=== PATIENT | female | born 1950 | race Caucasian/White ===

== ENCOUNTER 2016-10-27 05:45 | Inpatient (IN) | payer MEDICARE ==
--- NOTE | 2016-10-25 11:24 | Anesthesia Consultation ---
Anesthesia Consult and Med Hx Date of service: 10/25/16 - Airway Anesthetic Teeth Evaluation: Edentulous ROM Head & Neck: Adequate Mental/Hyoid Distance: Adequate Mallampati Class: Class II Intubation Access Assessment: Probably Good - Pulmonary Exam CTA: Yes - Cardiac Exam Cardiac Exam: RRR - Pre-Operative Health Status ASA Pre-Surgery Classification: ASA2 Proposed Anesthetic Plan: Spinal, MAC - Pre-Anesthesia Comment Pre-Anesthesia Comments: Past surgical history: bilateral total knee replacement , arm ORIF, hysterectomy - Pulmonary Hx Smoking: No Hx Asthma: Yes (NOT RECENT) Hx Sleep Apnea: No (ALICIA PRE SCREEN LOW RISK) - Cardiovascular System Hx Hypertension: No - Central Nervous System Hx Seizures: No CVA: No Hx Back Pain: Yes (CHRONIC) - Gastrointestinal Hx Gastroesophageal Reflux Disease: No - Endocrine Hx Renal Disease: No Hx Liver Disease: No Hx Non-Insulin Dependent Diabetes: No - Hematic Hx Anemia: Yes (Hx of blood transfusion) - Other Systems Hx Cancer: No - Additional Comments Anesthesia Medical History Comments: NAC
[2016-10-25 12:07] LABS: Basophils % (Auto) 0.6 % (0.0-1.8); Eosinophils % (Auto) 1.1 % (0.0-4.3); Hemoglobin 13.2 gm/dl (10.1-14.3); Mean Corpuscular HGB Conc 33 % (30-34); Mean Corpuscular Hemoglobin 28 pg (28-32); Mean Corpuscular Volume 84 fl (79-97); Platelet Count 212 K/mm3 (140-440); Red Blood Count 4.78 M/mm3 (3.65-5.03); Red Cell Distribution Width 12.8 % (13.2-15.2)
[2016-10-25 12:16] LABS: INR 1.03 (0.87-1.13)
[2016-10-25 12:17] LABS: Partial Thromboplastin Time 29.7 Sec. (24.2-36.6)
[2016-10-25 12:20] LABS: Alanine Aminotransferase 20 units/L (7-56); Albumin 3.9 g/dL (3.9-5); Albumin/Globulin Ratio 1.1 %; Alkaline Phosphatase 64 units/L (35-129); Bilirubin,Total 0.2 mg/dL (0.1-1.2); Blood Urea Nitrogen 13 mg/dL (7-17); Calcium 9.8 mg/dL (8.4-10.2); Carbon Dioxide 24 mmol/L (22-30); Chloride 101.9 mmol/L (98-107); Glucose 162 mg/dL (65-100); Potassium 3.7 mmol/L (3.6-5.0); Sodium 138 mmol/L (137-145); Total Protein 7.4 g/dL (6.3-8.2)
[2016-10-25 12:26] LABS: Anion Gap 16 mmol/L
[~2016-10-27 05:45] MED LIST: LACTATED RINGERS 1,000 ML IV SCH; PEPCID PO NR; TRANEXAMIC ACID IV ONE; VANCOMYCIN/NS 1 GM/250 ML 250 ML IV NR
[2016-10-27] MEDS ORDERED: NEURONTIN PO NR (06:00)
[2016-10-27] MEDS ORDERED: SUBLIMAZE IV NR (06:00)
[2016-10-27] MEDS ORDERED: NACL BACTERIOSTATIC INFILTRATI ONE (06:42)
[2016-10-27] MEDS ORDERED: VERSED IV NR (07:00)
[2016-10-27] MEDS ORDERED: XYLOCAINE 1% 20 mL ONE (07:00)
[2016-10-27] MEDS ORDERED: MARCAINE-EPI 0.25%-1:200,000 INFILTRATI ONE (07:01)
[2016-10-27] MEDS ORDERED: DECADRON ONE (07:01)
[2016-10-27] MEDS ORDERED: KETALAR IV ONE (07:10)
[2016-10-27] MEDS ORDERED: SUBLIMAZE ONE (07:10)
[2016-10-27] MEDS ORDERED: DIPRIVAN 10 MG/ML IV ONE ×2 (07:17→07:33)
[2016-10-27] MEDS ORDERED: ePHEDrine SULFATE ONE (07:53)
[2016-10-27] MEDS ORDERED: ZEMURON IV ONE (08:08)
[2016-10-27] MEDS ORDERED: XYLOCAINE MPF 2% ONE (08:09)
[2016-10-27] MEDS ORDERED: BLOXIVERZ ONE (08:17)
[2016-10-27] MEDS ORDERED: ROBINUL ONE (08:17)
[2016-10-27] MEDS ORDERED: NEOSPORIN GU IR ONE (08:18)
[2016-10-27] MEDS ORDERED: ZOFRAN ONE (08:18)
[2016-10-27] MEDS ORDERED: NACL 0.9% IR ONE ×2 (08:19)
[2016-10-27] MEDS ORDERED: NACL 0.9% 1000 ML 1,000 ML ONE (08:42)
[2016-10-27] MEDS ORDERED: TRANEXAMIC ACID IV ONE (08:59)
[2016-10-27] MEDS ORDERED: NARCAN 0.4 MG/1 ML IV PRN (09:22)
[2016-10-27] MEDS ORDERED: SODIUM CHLORIDE FLUSH SYRINGE 10 ML IV PRN (09:22)
[2016-10-27] MEDS ORDERED: MORPHINE IV PRN ×2 (09:22)
[2016-10-27] MEDS ORDERED: TYLENOL PO PRN (09:22)
[2016-10-27] MEDS ORDERED: PHENERGAN PR PRN (09:22)
--- NOTE | 2016-10-27 09:29 | Procedure Note ---
Date of procedure: 10/27/16 Pre-op diagnosis: post traumatic arthritis, heterotopic Bone left hip Post-op diagnosis: same Procedure: Left total hip replacement, Removal HO left hip Anesthesia: BRUNO Surgeon: CLEM TALLEY Gate Watchman: SCOTTY SALINAS Estimated blood loss: other (250) Pathology: list (femoral head) Specimen disposition: to lab Condition: stable Disposition: floor
[2016-10-27] MEDS: DILAUDID IV PRN ×3 (09:35→10:16)
[2016-10-27] MEDS ORDERED: DILAUDID ONE (09:36)
[2016-10-27] MEDS ORDERED: LACTATED RINGERS 1,000 ML ONE (09:40)
[2016-10-27] MEDS ORDERED: ANCEF/NS 1 GM/50 ML 50 ML IV SCH ×2 (10:00→23:30)
[2016-10-27] MEDS ORDERED: DULCOLAX PR PRN (10:00)
[2016-10-27] MEDS: MORPHINE PCA 30MG/30ML IV SCH (10:07)
--- NOTE | 2016-10-27 10:07 | Post Anesthesia Evaluation ---
- Post Anesthesia Evaluation Patient Participated: Yes Airway Patent: Yes Stable Respiratory Function: Yes Nausea/Vomiting: No Temp > 96.8F: Yes Pain Manageable: Yes Adequeate Hydration: Yes Anesthesia Complications: No Block Receding Appropriately: Yes Patient on Ventilator: No
--- NOTE | 2016-10-27 10:43 | Admit Criteria Form ---
Admission Criteria Documentation: AMBULATORY SURGERY EXCEPTION CRITERIA Ambulatory Surgery Exception Criteria ( Place 'X' for any and all applicable criteria): Surgery or procedure performed on ambulatory basis may require inpatient stay for[A] ANY ONE of the following(1)(2)(3)(4)(5)(6)(7)(8)(9): [X] I. A preoperative situation, condition, or finding that warrants inpatient stay as indicated by ANY ONE of the following: [] a) Inpatient care needed because of severity of a disease or condition rather than the surgery (eg, severe cardiac or respiratory disease, severe infection) (15) (16 ) (17) (18) [] b) Emergent procedure (eg, angioplasty for acute ischemia)(19) [X] c) Complex surgical approach or situation as indicated by ANY ONE of the following(3): [X] i) Open approach needed instead of usual endoscopic, transcatheter, or other less invasive procedure [] ii) Difficult approach because of previous operation [] iii) Airway monitoring required after open neck procedures(20)(21) [] iv) Large mass requiring unusually extensive dissection [] v) Additional complicating feature requiring inpatient care (eg, drain management)(22(23): [] d) Major surgery in a pt with high anesthetic risk as indicated by ANY ONE of the following (2)(3)(5)(7)(8): [] i) ASA risk class III or higher (severe systemic disease impairing function) [D] [] ii) Advanced age (eg, older than 85 years)(14)(24) [] iii) Symptomatic heart failure(25) [] iv) Symptomatic asthma or COPD(8)(21) [] v) Morbid obesity with hemodynamic or respiratory problems(20)( 21)(26)(27) [] vi) Obstructive sleep apnea(20)(21) [] vii) Former premature infants who are younger than 60 weeks [] viii) High risk for severe postoperative abnormalities (eg, severe postoperative hypocalcemia after parathyroidectomy for severe hyperparathyroidism)(27)( 28) [] ix) Unstable angina(25) [] e) Drug-related risk requiring inpatient stay as indicated by ANY ONE of the following(5)(10)(14)(32)(33) [] i) Procedure requires discontinuing drugs or other therapy (eg , antiarrhythmic medication, antiseizure medication), which necessitates inpatient observation or treatment.(18)(31) [] ii) Major surgery and high risk drug use as indicated by ANY ONE of the following: [] 1) Active abuse of cocaine or similar drug [] 2) Monoamine oxidase inhibitor use [] 3) Other drug identified as posing risk [] f) Inadequate outpatient care situation as indicated by ANY ONE of the following(5)(10)(14)(32)(33) [] i) Patient lives remote from medical facility and procedure has urgent complication potential, and temporary nearby residence cannot be arranged [] ii) Patient will have postprocedure incapacitation and inadequate assistance at home, or alternative level of care cannot be arranged. [] iii) Patient will have long general anesthesia or procedure side effect resolution time, and competent person to stay with patient on first postoperative night at home or alternative level of care cannot be arranged. []iv) Other inadequate outpatient situation that cannot be handled by other means [] II. A perioperative event, condition, or finding that warrants inpatient stay as indicated by ANY ONE of the following (1)(2)(3): [] a) Inadequate physiologic recovery: cardiovascular, respiratory, or hemodynamic status not normal or near preoperative baseline(18) [] b) Hemodynamic instability [] c) Patient not alert with near normal or baseline mental status [] d) Temperature not normal or as expected and not appropriate for outpatient treatment of condition [] e) Ambulatory or appropriate activity level status not yet achieved post procedure [E](34)(35)(36) [] f) Operative site not appropriate (eg, unexpected or excessive drainage or bleeding) [] g) Postoperative effects not resolved or adequately managed (eg, significant pain or vomiting not appropriate for outpatient or next level of care)(10)(12) [] h) Complicating features requiring inpatient care as indicated by ANY ONE of the following(37): [] i) Severe complications of procedure (eg, bowel injury, airway compromise, vascular injury,severe hemorrhage) [] ii) Extensive (eg, dissection far beyond usual scope of procedure ) or prolonged (eg, 120 minutes beyond usual) surgery needed requiring inpatient postoperative care [] iii) Conversion to an open or complex procedure that requires inpatient care (eg, open vs laparoscopic cholecystectomy, abdominal vs vaginal hysterectomy)(38) [] iv) Comorbid condition or test result identified during or post procedure that requires inpatient care (7) [] v) Malignant hyperthermia(30) [] vi) Other complicating feature requiring inpatient care(22)(23) Inpatient stay may be needed until ALL of the following are present (1)(2)(3)(4) (5)(6)(10)(14)(33)(40): []a) Physiologic recovery: cardiovascular, respiratory, and hemodynamic status normal or near preoperative baseline []b) Hemodynamic stability []c) Patient alert, with near normal or baseline mental status []d) Temperature appropriate: patient afebrile or temperature appropriate for outpt treatment of condition []e) Activity level appropriate: ambulatory or appropriate activity level post procedure []f) Operative site appropriate as indicated by ALL of the following: []i) Site dry or with expected drainage []ii) Any blood noted is as expected for procedure. []g) Postoperative effects resolved or managed as indicated by ALL of the following: []i) Pain management appropriate for outpatient (or next level of) care(10) []ii) Minimal nausea and vomiting: if present, successfully treated with oral medication(12) []iii) Headache, dizziness, or drowsiness (if present) are mild. []h) Voiding status acceptable as indicated by ANY ONE of the following: []i) Voiding spontaneously []ii) No voiding but instructions given for follow-up in 6 to 8 hours []iii) Urinary catheter in place, and instructions given for follow-up []i) Complicating features requiring inpatient care manageable at a lower level of care(37) []j) Comorbid conditions manageable at a lower level of care(37) The original [employer] content created by [employer] has been revised. The portions of the content which have been revised are identified through the use of italic text or in bold, and [facility] [employer] has neither reviewed nor approved the modified material. All other unmodified content is copyright [employer]. Please see references footnoted in the original [employer] edition 2016 Admission Criteria Met: Yes
[2016-10-27] MEDS: D5/0.45NS 1,000 ML IV SCH ×2 (11:41→22:35)
[2016-10-27] MEDS: NORCO 5/325 PO PRN (12:45)
[2016-10-27] MEDS: COLACE PO SCH (22:00)
[2016-10-28] MEDS: OxyCONTIN PO SCH ×3 (06:00→21:20)
--- NOTE | 2016-10-28 08:14 | Progress Note ---
Assessment and Plan alert orientated in NAD Chest clear, soft abdomen Neuro intact wound ok OOB today. plan dc in am c home PT. - Patient Problems (1) H/O total hip arthroplasty Current Visit: Yes Status: Resolved Subjective Date of service: 10/28/16 Objective Vital signs: Vital Signs - 12hr 10/27/16 10/28/16 22:47 01:10 Temperature 97.9 F 98.0 F Pulse Rate [ 58 L 59 L Left] Respiratory 20 20 Rate Blood Pressure 104/55 94/53 [Left Arm] O2 Sat by Pulse 96 98 Oximetry - Labs CBC & BMP: 10/25/16 10:38 10/25/16 10:39
--- NOTE | 2016-10-28 08:17 | Discharge Summary ---
Providers - Providers Date of Admission: 10/27/16 05:45 Attending physician: CLEM TALLEY 10/27/16 00:01 Consult to Case Management [CONS] Routine Services Needed at Discharge: Home Health Services Physical Therapy Consult to Physician [CONS] Routine Consulting Provider: VENKATESH TIM Reason For Exam: for post op medical management s/p total hip 10/27/16 09:24 Physical Therapy Evaluation and Treat [CONS] Routine Comment: avoid flexion, add, int rotation of operative hip Reason For Exam: total hip Mode of Transport?: Wheelchair Weight bearing status?: Full wt bearing Assistive devices?: Yes If so list: Walker 10/28/16 00:01 Physical Therapy Evaluation and Treat [CONS] Routine Comment: Reason For Exam: s/p total hip arthroplasty Mode of Transport?: Wheelchair Weight bearing status?: Partial wt bearing Assistive devices?: Yes If so list: Walker Hale Primary care physician: NEW PRODUCT TRAINER Hospitalization Disposition: STILL A PATIENT - Discharge Diagnoses (1) H/O total hip arthroplasty Status: Resolved Core Measure Documentation - Palliative Care Palliative Care/ Comfort Measures: Not Applicable - Core Measures Any of the following diagnoses?: none - VTE Discharge Requirements Has pt received <5 days of overlap therapy or INR<2.0: No Anticoagulant overlap therapy prescribed at discharge: Yes Exam - Constitutional Vitals: Temp Pulse Resp BP Pulse Ox 98.0 F 59 L 20 94/53 98 10/28/16 01:10 10/28/16 01:10 10/28/16 01:10 10/28/16 01:10 10/28/16 01:10 Plan Activity: advance as tolerated Weight Bearing Status: Weight Bear as Tolerated Diet: regular Wound: keep clean and dry Durable Medical Equipment Needed Upon Discharge: Walker-Rolling
--- NOTE | 2016-10-28 10:34 | Consultation ---
History of Present Illness - Reason for Consult Medical management - History of Present Illness Known pt to me who just moved from [place] to [place] and underwent L hip arthroplasty. Has DM treated by diet and last month A1c 6.9 In general stays in good health. Also has been treated for GERD Past History Past Medical History: diabetes, GERD, other (Osteoporosis) Social history: single Family history: diabetes Medications and Allergies Allergies Allergy/AdvReac Type Severity Reaction Status Date / Time No Known Allergies Allergy Verified 02/23/16 06:00 Home Medications Medication Instructions Recorded Confirmed Last Taken Type Ascorbic Acid [Vitamin C] 1,000 mg PO DAILY 10/20/16 10/20/16 10/26/16 History Aspirin [Adult Low Dose Aspirin EC] 81 mg PO DAILY 10/20/16 10/27/16 1 Week Ago History Centrum Silver Tablet 1 tab PO DAILY 10/20/16 10/20/16 10/26/16 History Cholecalciferol Vit D3 [Vitamin D3] 1,000 unit PO QDAY 10/20/16 10/20/16 History Active Meds: Active Medications Acetaminophen (Tylenol) 650 mg PO Q4H PRN PRN Reason: Pain MILD(1-3)/Fever >100.5/CHAVES Acetaminophen/Hydrocodone Bitart ([place] 5/325) 1 each PO Q6H PRN PRN Reason: Pain, Moderate (4-6) Last Admin: 10/27/16 12:45 Dose: 1 each Bisacodyl (Dulcolax) 10 mg MS QDAY PRN PRN Reason: Constip unreliev by MOM/or NPO Docusate Sodium (Colace) 100 mg PO BID [facility] Last Admin: 10/27/16 22:00 Dose: 100 mg Enoxaparin Sodium (Lovenox) 40 mg SUB-Q QDAY [facility] Dextrose/Sodium Chloride (D5/0.45ns) 1,000 mls @ 100 mls/hr IV DIRECT [facility] Last Admin: 10/27/16 22:35 Dose: 100 mls/hr Magnesium Hydroxide (Milk Of Magnesia) 30 ml PO Q4H PRN PRN Reason: Constipation Morphine Sulfate (Morphine) 2 mg IV Q4H PRN PRN Reason: Pain, Moderate (4-6) Morphine Sulfate (Morphine Senior Technical Specialist 30mg/30ml) 0 mg IV DIRECT HERACLIO PRN Reason: Protocol Last Admin: 10/27/16 10:07 Dose: 1 cartstart Morphine Sulfate (Morphine) 4 mg IV Q4H PRN PRN Reason: Pain , Severe (7-10) Multivitamins (Theragran Tab) 1 each PO QDAY HERACLIO Naloxone HCl (Narcan 0.4 Mg/1 Ml) 0.1 mg IV Q2MIN PRN PRN Reason: Res Rate </= 8 or 02 SAT < 92% Oxycodone HCl (Oxycontin) 10 mg PO Q12HR [facility] Last Admin: 10/28/16 06:00 Dose: Not Given Oxycodone/Acetaminophen (Percocet 5/325) 1 tab PO Q6H PRN PRN Reason: Pain, Moderate (4-6) Pneumococcal Polyvalent Vaccine (Pneumovax 23) 0.5 ml IM .ONCE ONE Stop: 10/28/16 12:01 Promethazine HCl (Phenergan) 25 mg MS Q6H PRN PRN Reason: Nausea And Vomiting Sodium Chloride (Sodium Chloride Flush Syringe 10 Ml) 10 ml IV PRN PRN PRN Reason: LINE FLUSH Zolpidem Tartrate (Ambien) 5 mg PO QHS PRN PRN Reason: Sleep Exam - Constitutional Vitals: Temp Pulse Resp BP Pulse Ox 98.8 F 65 18 91/50 94 10/28/16 08:00 10/28/16 08:00 10/28/16 08:00 10/28/16 08:00 10/28/16 08:00 Results - Labs CBC & Chem 7: 10/25/16 10:38 10/25/16 10:39 Assessment and Plan - Patient Problems (1) H/O total hip arthroplasty Current Visit: Yes Status: Resolved Plan to address problem: Per orthopedics (2) Diabetes 1.5, managed as type 2 Current Visit: Yes Status: Chronic Plan to address problem: A1c 6.9, managed by diet Will continue monitoring her glycemia
[2016-10-28] MEDS ORDERED: D50W (25GM) IV PRN ×2 (10:42→10:44)
[2016-10-28] MEDS: D5/0.45NS 1,000 ML IV SCH (11:43)
--- NOTE | 2016-10-28 11:48 | Progress Note ---
Subjective Date of service: 10/28/16 Interval history: 1st POD after total hip replacement. Patient is in the bed, relatively comfortable. Pain is well controlled with pain meds. Ambulated with physical therapist. No nausea or vomiting. No anesthesia complications Objective - Constitutional Vitals: Vital Signs - 12hr 10/28/16 10/28/16 10/28/16 01:10 08:00 11:02 Temperature 98.0 F 98.8 F Pulse Rate [ 59 L 65 Left] Respiratory 20 18 Rate Blood Pressure 94/53 91/50 [Left Arm] O2 Sat by Pulse 98 94 94 Oximetry - Labs CBC & Chem 7: 10/25/16 10:38 10/25/16 10:39
[2016-10-28] MEDS ORDERED: PNEUMOVAX 23 IM ONE (12:00)
[2016-10-28] MEDS: COLACE PO SCH ×2 (15:00→21:20)
[2016-10-28] MEDS: THERAGRAN Tab PO SCH (15:00)
[2016-10-28] MEDS: LOVENOX SUB-Q SCH (15:00)
[2016-10-28] MEDS: NORCO 5/325 PO PRN (23:54)
[2016-10-28] MEDS: AMBIEN PO PRN (23:54)
[2016-10-29] MEDS: D5/0.45NS 1,000 ML IV SCH ×2 (02:01→22:23)
[2016-10-29] MEDS: OxyCONTIN PO SCH ×2 (09:05→22:24)
[2016-10-29] MEDS: LOVENOX SUB-Q SCH (09:05)
[2016-10-29] MEDS: COLACE PO SCH ×3 (09:05→22:24)
[2016-10-29] MEDS: THERAGRAN Tab PO SCH ×2 (09:05→12:24)
[2016-10-29] MEDS: MORPHINE PCA 30MG/30ML IV SCH (22:25)
[2016-10-30] MEDS: OxyCONTIN PO SCH ×3 (08:30→22:00)
[2016-10-30] MEDS: THERAGRAN Tab PO SCH (11:30)
[2016-10-30] MEDS: COLACE PO SCH ×2 (11:30→22:00)
[2016-10-30] MEDS: LOVENOX SUB-Q SCH (13:54)
[2016-10-30] MEDS: PERCOCET 5/325 PO PRN (15:11)
--- NOTE | 2016-10-30 15:26 | Operative Report ---
PREOPERATIVE DIAGNOSIS: Posttraumatic arthritis of the left hip, heterotopic bone formation. PROCEDURES: Exploration of left hip, left total hip replacement arthroplasty, heterotopic bone resection. SURGEON: Kam Dash MD JUNIOR RECRUITER: Aziza Gama RN ANESTHESIA: Spinal/General. COMPLICATIONS: None. BRIEF HISTORY: The patient is a 66-year-old female who was admitted to hospital for surgical repair. The patient is having had in past a fractured hip, status post fixation after removal of the fixation in a subsequent surgery. The patient had developed posttraumatic arthritis, hip deformity, and a heterotopic bone formation. PROCEDURE: Once the patient was in surgical room, a time-out was carried out to identify the patient and procedure, prepping and draping of the patient was done in the usual fashion. The patient was placed on her side with hip up. An salon assistant was required secondary to the complexity of the case. The procedure was done by making a posterolateral portion of the hip joint. Dissection was carried out to subcutaneous tissues, retractor was inserted. The incision carried out to the tensor facia najma. Hemostasis was achieved. At this point, flexion of the hip was found to be severely limited. The posterior capsule was exposed and the osteophytes on the posterior side of the hip were exposed also. The sciatic nerve was dissected. Once this was done, resection of the heterotopic bone formation and posterior to the hip capsule was carried out using a mallet, hammer, and a chisel. Once the fragments were removed, the capsule was exposed. The procedure was carried out at this point after exposure of the capsule head by following the posterolateral aspect of the acetabulum and superiorly with resection of multiple fragments of bone from the capsule superior and also anterior to the acetabulum. Once the head was exposed, the neck was cut, and the femoral head removed. The head was measured. The trials were inserted, the dissection was carried out anterior to the acetabulum, where other osteophytes and heterotopic bone fragments were removed. The wound was irrigated multiple times during the procedure with saline solution to eliminate any kind of bone debris. Once it was carried out, the acetabulum was then reamed in a sequential basis without any problems. The acetabular shell was inserted and acetabular shell was fixed to the socket with two screws. The liner was inserted. Once this was carried out, the femur was entered , the medullary canal was exposed, reamed, and rasping of the hip was done. Once this was carried out, the hip was extensively irrigated, a femoral block was inserted into the medullary canal. Then, the procedure was continued by irrigation of the hip again. Once the hip was irrigated and dried, cement was injected into the medullary canal of the femur. The prosthetic stem was inserted and allowed to polymerize. Once the stem was fixed and solid, the hip was reduced into the hip, and measurement of neck length was done. Once trialing was done and the neck length determined, the procedure was continued by the insertion of the actual neck, reduction of the hip. The leg length appeared to have been restored. The procedure was then terminated. The wounds were irrigated extensively. The wound closed by reapproximation most of the tissues posterior to the hip joint, following this by closure of the fascia with #1 Vicryl, the subcutaneous tissue with 2-0 Vicryl, the skin with skin clips. A compression bandage applied. The patient tolerated the procedure well. There were no other complications. JOB# [id number] WILLIAM/HUEY LARSON
[2016-10-30] MEDS: NORCO 5/325 PO PRN (23:55)
[2016-10-31] MEDS: PERCOCET 5/325 PO PRN (03:00)
[2016-10-31] MEDS: THERAGRAN Tab PO SCH (09:15)
[2016-10-31] MEDS: OxyCONTIN PO SCH ×3 (09:15→22:23)
[2016-10-31] MEDS: COLACE PO SCH ×2 (09:15→22:24)
[2016-10-31] MEDS: LOVENOX SUB-Q SCH (11:25)
[2016-10-31] MEDS: NORCO 5/325 PO PRN (11:45)
[2016-10-31] MEDS: AMBIEN PO PRN (22:25)
[2016-11-01] MEDS: MILK OF MAGNESIA PO PRN ×2 (01:10→09:31)
[2016-11-01] MEDS: NORCO 5/325 PO PRN ×2 (04:30→11:49)
[2016-11-01] MEDS: COLACE PO SCH ×2 (09:32→21:09)
[2016-11-01] MEDS: THERAGRAN Tab PO SCH (09:32)
[2016-11-01] MEDS: OxyCONTIN PO SCH ×2 (09:33→21:08)
[2016-11-01] MEDS: LOVENOX SUB-Q SCH (09:39)
--- NOTE | 2016-11-01 16:02 | Progress Note ---
Assessment and Plan - Patient Problems (1) H/O total hip arthroplasty Current Visit: Yes Status: Resolved Qualifiers: Laterality: left Qualified Code(s): Z96.642 - Presence of left artificial hip joint Plan to address problem: Continue with rehabilitation program, weightbearing as tolerated, DVT prophylaxis, HO prophylaxis with anti-inflammatories. This may be discharged with outpatient rehabilitation, home health care, followup in the office and discharge. (Discharge order had been put in by Dr. Tobin days ago; as per nursing staff discharge was not completed as the patient's daughter "was not awailable to take her home").Believe she can be discharged home with home health care, outpatient rehabilitation, on DVT prophylaxis and HO prophylaxis. Subjective Date of service: 11/01/16 Interval history: Left total hip arthroplasty, no new complaints. Out of bed. Objective Vital signs: Vital Signs - 12hr 11/01/16 08:00 Temperature 97.9 F Pulse Rate [ 77 Left] Respiratory 18 Rate Blood Pressure 105/62 [Left Arm] O2 Sat by Pulse 98 Oximetry - Labs CBC & BMP: 10/25/16 10:38 10/25/16 10:39 Labs: Abnormal lab results 10/31/16 10/31/16 11/01/16 Range/Units 17:07 21:19 07:19 POC Glucose 192 H 236 H 178 H (70-105) 11/01/16 Range/Units 11:22 POC Glucose 224 H (70-105)
[2016-11-01] MEDS: PERCOCET 5/325 PO PRN (18:48)
[2016-11-02] MEDS: NORCO 5/325 PO PRN (03:09)
[2016-11-02 08:08] VITALS: BP 108/72
[2016-11-02] MEDS: PERCOCET 5/325 PO PRN (08:25)
[2016-11-02] MEDS: COLACE PO SCH (09:36)
[2016-11-02] MEDS: LOVENOX SUB-Q SCH (09:36)
[2016-11-02] MEDS: OxyCONTIN PO SCH (09:39)
[2016-11-02] MEDS: THERAGRAN Tab PO SCH (09:41)
== END 2016-11-02 13:20 | disposition home or self-care (01) | DRG 470 ==
LOC: 3A 05:45 → 2B-SURG 10:02
PROC: 0SRB0J9 Replacement of Left Hip Joint with Synthetic Substitute, Cemented, Open Approach (ICD-10-PCS; principal; 2016-10-27)
PROC: 0QB50ZZ Excision of Left Acetabulum, Open Approach (ICD-10-PCS; principal; 2016-10-27)
DX: M16.52 Unilateral post-traumatic osteoarthritis, left hip (principal); T14.90 Injury, unspecified; Z96.653 Presence of artificial knee joint, bilateral; J45.909 Unspecified asthma, uncomplicated; G89.29 Other chronic pain; E11.9 Type 2 diabetes mellitus without complications; M81.0 Age-related osteoporosis without current pathological fracture; X58.XXXS Exposure to other specified factors, sequela; Q65.89 Other specified congenital deformities of hip; Z90.710 Acquired absence of both cervix and uterus; Z83.3 Family history of diabetes mellitus
CPT/HCPCS: 36415; 64450; 80053; 82962; 85025; 85610; 85730; 86850; 86900; 86901; 88304; 88311; 90732; A4217; C1776; G8978-GP; G8979-GP; J0690; J1100; J1170; J1650; J1815; J2250; J2270; J2405; J2704; J2710; J3010; J3370; J7030; J7120

== ENCOUNTER 2016-11-08 13:29 | Inpatient (IN) | payer MEDICARE ==
--- NOTE | 2016-11-08 14:46 | Emergency Department Report ---
Chief Complaint: Pain General Stated Complaint: LEFT HIP PAIN Time Seen by Provider: 11/08/16 14:40 - HPI History of Present Illness: Patient is a 66 y/o female who presents due to left lower leg pain and swelling x 1 day. Patient states that she had hip surgery 12 days ago and has had pain since the surgery but states that the pain became worse last night. Patient denies any chest pain or SOB, she denies any fever or chills. Patient's orthopedic surgeon is Hetal Lucia Review of Systems: no chest pain, no SOB, no fever, no chills - Exam Vital Signs: Vital Signs 11/08/16 14:18 Temperature 98.4 F Pulse Rate 75 Respiratory 18 Rate Blood Pressure 140/74 O2 Sat by Pulse 100 Oximetry Physical Exam: left lower leg edema, erythema and tenderness MSE screening note: Focused history and physical exam performed. Due to findings the following was ordered:Venous Doppler was ordered and basic labs ED Disposition for MSE Condition: Stable
[2016-11-08 16:20] LABS: Basophils % (Auto) 0.5 % (0.0-1.8); Eosinophils % (Auto) 0.4 % (0.0-4.3); Hemoglobin 11.3 gm/dl (10.1-14.3); Mean Corpuscular HGB Conc 32 % (30-34); Mean Corpuscular Hemoglobin 27 pg (28-32); Mean Corpuscular Volume 83 fl (79-97); Platelet Count 347 K/mm3 (140-440); Red Blood Count 4.22 M/mm3 (3.65-5.03); Red Cell Distribution Width 13.1 % (13.2-15.2); White Blood Count 6.2 K/mm3 (4.5-11.0)
[2016-11-08 16:29] LABS: INR 1.03 (0.87-1.13)
[2016-11-08 16:43] LABS: Alanine Aminotransferase 14 units/L (7-56); Albumin 3.9 g/dL (3.9-5); Alkaline Phosphatase 65 units/L (35-129); Bilirubin,Total 0.3 mg/dL (0.1-1.2); Blood Urea Nitrogen 10 mg/dL (7-17); Carbon Dioxide 27 mmol/L (22-30); Chloride 99.3 mmol/L (98-107); Glucose 150 mg/dL (65-100); Potassium 4.5 mmol/L (3.6-5.0); Sodium 141 mmol/L (137-145); Total Protein 7.7 g/dL (6.3-8.2)
[2016-11-08 16:50] LABS: Anion Gap 19 mmol/L
[2016-11-08] MEDS ORDERED: DILAUDID IM ONE (18:27)
--- NOTE | 2016-11-08 18:32 | Emergency Department Report ---
ED General Adult HPI - General Chief complaint: Pain General Stated complaint: LEFT HIP PAIN Time Seen by Provider: 11/08/16 18:17 Source: EMS Mode of arrival: Wheelchair Limitations: Language Barrier - History of Present Illness Initial comments: 66-year-old female presents to the emergency department complaining of left hip pain and leg swelling. 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 Patient underwent left hip replacement on 10/27/2016. Since that time she has been having pain in her left hip radiating down her left leg. She states that her medications that she was sent home with her not helping with the pain. The leg is swollen. She denies new injury to the leg. She was scheduled to follow up with orthopedics today became the emergency department due to the pain being so intense. There are no other complaints. -: Gradual, week(s) (2) Location: left, lower extremity Radiation: non-radiation Severity scale (0 -10): 8 Quality: sharp Consistency: constant Improves with: none Worsens with: none Associated Symptoms: other (leg swelling) - Related Data Home Medications Medication Instructions Recorded Confirmed Last Taken Ascorbic Acid [Vitamin C] 1,000 mg PO DAILY 10/20/16 10/20/16 10/26/16 Aspirin [Adult Low Dose Aspirin EC] 81 mg PO DAILY 10/20/16 10/27/16 1 Week Ago Centrum Silver Tablet 1 tab PO DAILY 10/20/16 10/20/16 10/26/16 Cholecalciferol Vit D3 [Vitamin D3] 1,000 unit PO QDAY 10/20/16 10/20/16 Allergies Allergy/AdvReac Type Severity Reaction Status Date / Time No Known Allergies Allergy Verified 02/23/16 06:00 ED Review of Systems ROS: Stated complaint: LEFT HIP PAIN Other details as noted in HPI Comment: All other systems reviewed and negative Musculoskeletal: as per HPI, arthralgia ED Past Medical Hx - Past Medical History Previous Medical History?: Yes Hx Hypertension: No Hx Diabetes: Yes Hx GERD: Yes Hx Liver Disease: No Hx Renal Disease: No Hx Arthritis: Yes Hx Seizures: No Hx Asthma: Yes (NOT RECENT) Hx HIV: No Additional medical history: chronic back pain - Surgical History Past Surgical History?: Yes Additional Surgical History: knee arm and back, left hip replacement - Family History Family history: no significant - Social History Smoking Status: Never Smoker Substance Use Type: None - Medications Home Medications: Home Medications Medication Instructions Recorded Confirmed Last Taken Type Ascorbic Acid [Vitamin C] 1,000 mg PO DAILY 10/20/16 10/20/16 10/26/16 History Aspirin [Adult Low Dose Aspirin EC] 81 mg PO DAILY 10/20/16 10/27/16 1 Week Ago History Centrum Silver Tablet 1 tab PO DAILY 10/20/16 10/20/16 10/26/16 History Cholecalciferol Vit D3 [Vitamin D3] 1,000 unit PO QDAY 10/20/16 10/20/16 History ED Physical Exam - General Limitations: Language Barrier General appearance: alert, in no apparent distress - Head Head exam: Present: atraumatic, normocephalic - Eye Eye exam: Present: normal appearance, PERRL, EOMI - ENT ENT exam: Present: normal exam, normal orophraynx, mucous membranes moist - Neck Neck exam: Present: normal inspection, full ROM. Absent: tenderness - Respiratory Respiratory exam: Present: normal lung sounds bilaterally. Absent: respiratory distress - Cardiovascular Cardiovascular Exam: Present: regular rate, normal rhythm, normal heart sounds - GI/Abdominal GI/Abdominal exam: Present: soft, normal bowel sounds. Absent: distended, tenderness - Extremities Exam Extremities exam: Present: other (left lower extremity with 2+ pitting edema. Diffuse tenderness to palpation of the extremity. Surgical incision site noted to the left lateral hip with vinnie in place. There is no surrounding erythema or drainage. Range of motion limited secondary to pain. Remainder of extremities are unremarkable.) - Back Exam Back exam: Present: normal inspection, full ROM. Absent: tenderness - Neurological Exam Neurological exam: Present: alert, oriented X3. Absent: motor sensory deficit - Skin Skin exam: Present: warm, dry, intact ED Course Vital Signs 11/08/16 11/08/16 14:18 18:37 Temperature 98.4 F Pulse Rate 75 Respiratory 18 18 Rate Blood Pressure 140/74 O2 Sat by Pulse 100 Oximetry - Consultations Consultation #1: 11/08/16 18:[address] Dash, orthopedics. He states he was told that the patient's daughter was going out of town and the patient has nobody to stay with. Patient's cousin is currently at bedside. She states that she was going to take the patient home but she has multiple steps to get into the house. Per Dr. Dash, the patient will be admitted by the hospitalist for pain management and placement assistance. ED Medical Decision Making - Lab Data Result diagrams: 11/08/16 16:05 11/08/16 16:05 - Differential Diagnosis postop pain, DVT Critical care attestation.: If time is entered above; I have spent that time in minutes in the direct care of this critically ill patient, excluding procedure time. ED Disposition Clinical Impression: Left hip pain Disposition: OP ADMITTED IP TO THIS HOSP Is pt being admited?: Yes Condition: Stable Time of Disposition: 18:58
--- NOTE | 2016-11-08 18:46 | Admit Criteria Form ---
Admission Criteria Documentation: MUSCULOSKELETAL DISEASE GRG Clinical Indications for Admission to Inpatient Care (Place 'X' for any and all applicable criteria): Hospital admission is needed for appropriate care of the patient because of ANY ONE of the following: [X ]I. Fracture, dislocation, or other musculoskeletal injury requiring inpatient care(medical) as indicated by ANY ONE of the following(4)(5)(6)(7) [ ]a) Vertebral fracture requiring observation for instability or neurologic compromise (8) [ ]b) Compartment syndrome (proven or cannot be ruled out during observation level of care) (9) [ ]c) Limb-threatening injury [ ]d) Major injury requiring inpatient stabilization such as traction initiation or external fixation before internal fixation or closure of complex or open fracture [ ]e) Major injury requiring inpatient treatment after emergency or observation level care (as appropriate) [ X]f) Severe pain requiring acute inpatient management [ ]II. Newly diagnosed or suspected bone, joint, or orthopedic device infection (e.g., osteomyelitis, septic arthritis) needing ANY ONE of the following(1)(2)(3) [ ]a) IV antibiotics that cannot be initiated in other than inpatient setting (e.g., patient too unstable or home infusion not available) [ ]b) Device removal or replacement [ ]c) Bone or soft tissue debridement [ ]d) Joint drainage (drain placement or repetitive aspirations) [ ]III. Severe rheumatologic disease (e.g., systemic lupus erythematosus, rheumatoid arthritis) with complications or comorbidities (Also use Optimal Recovery Care Criteria or General Recovery Criteria as appropriate on the basis of predominant condition), including ANY ONE of the following(10 )(11)(12)(13) [ ]a) Severe infection (e.g., ASSISTANT HVAC MECHANIC infection, sepsis) (14) [ ]b) Respiratory complications, including ANY ONE of the following: [ ]i) Pleural effusion with respiratory compromise [ ]ii) Pulmonary hypertension with congestive failure [ ]iii) Respiratory failure [ ]iv) Pulmonary hemorrhage (15) [ ]c) Hematologic disease, including ANY ONE of the following: [ ]i) Coagulopathy with bleeding [ ]ii) Thrombosis with hypercoagulable state [ ]iii) Thrombotic thrombocytopenic purpura [ ]d) Cerebritis with seizures, psychosis, or other severe abnormalities [ ]e) Vertebral destruction with monitoring needed for cervical myelopathy& possible respiratory compromise [ ]f) Exacerbation that requires inpatient treatment (e.g., intravenous immunosuppression) (16) [ ]g) Acute renal failure [ ]IV. Severe vasculitis with complications or comorbidities (Also use Optimal Recovery Care Criteria or General Recovery Criteria as appropriate on the basis of predominant condition), including ANY ONE of the following(11)(12)(17)(18)(19)(20) [ ]a) ASSISTANT HVAC MECHANIC vasculitis with seizures, psychosis, or other severe abnormalities (22) [ ]b) Renal failure (16) [ ]c) Pulmonary hemorrhage (15) [ ]d) Cerebral infarction [ ]e) Gastrointestinal ischemia [ ]f) Gangrene or threatened amputation [ ]g) Exacerbation that requires inpatient treatment (e.g., intravenous immunosuppression) (19)(21) [ ]V. Severe myopathy as indicated by ANY ONE of the following (28)(29) [ ]a) New onset of airway compromise or inability to swallow [ ]b) Respiratory deterioration with observation needed for impending respiratory failure [ ]c) Exacerbation that requires inpatient treatment (e.g., intravenous immunosuppression) [ ]. Severe gout (crystal arthropathy) as indicated by ANY ONE of the following (23)(24) [ ]a) Severe pain requiring acute inpatient management [ ]b) Exacerbation that requires inpatient treatment (e.g., intravenous treatment) [ ]VII.Rhabdomyolysis and ANY ONE of the following (25)(26)(27) [ ]a) Acute renal failure [ ]b) Need for intravenous hydration after emergency or observation level care (as appropriate) [ ]c) Inability to maintain oral hydration [ ]d) Change in mental status [ ]e) Electrolyte abnormality that remains after emergency or observation level care (as appropriate) [ ]VIII Post amputation complication, as indicated by ANY ONE of the following [ ]a) Infection [ ]b) Dehiscence [ ]c) Myodesis failure [ ]IX. Severe pain requiring acute inpatient management as indicated by ALL of the following (30)(31)(32) [ ]a) Continuous or frequent (e.g., every 2 to 4 hrs) parenteral analgesics required [A] [ ]b) Rapid improvement expected from treatment or acute intervention ( e.g., surgery, anesthesia procedure[B] [ ]X. Musculoskeletal Disease and ALL of the following: [ ]a) Symptom or finding for which emergency and observation care have failed or are not considered appropriate (Use General Criteria: Observation Care as appropriate) [ ]b) Presence of ANY ONE of the following [ ]i) A General Admission Criteria [ ]ii) A Pediatric General Admission Criteria The original [facility] content created by [facility] has been revised. The portions of the content which have been revised are identified through the use of italic text or in bold, and [facility] has neither reviewed nor approved the modified material. All other unmodified content is copyright [facility]. Please see references footnoted in the original [facility] edition 2016 Admission Criteria Met: Yes
[2016-11-08] MEDS ORDERED: ZOFRAN IV PRN (21:43)
[2016-11-08] MEDS ORDERED: TYLENOL PO PRN (21:43)
[2016-11-08] MEDS ORDERED: DULCOLAX PR PRN (21:43)
[2016-11-08] MEDS ORDERED: PERCOCET 5/325 PO PRN (21:43)
[2016-11-08] MEDS ORDERED: D50W (25GM) IV PRN (21:43)
[2016-11-08] MEDS ORDERED: MILK OF MAGNESIA PO PRN (21:43)
--- NOTE | 2016-11-08 21:43 | History and Physical Report ---
History of Present Illness Date of examination: 11/08/16 Date of admission: 11/08/16 18:59 History of present illness: 66-year-old woman, status post left hip surgery comes emergency room of pain in the left hip. She is unable to do her ADLs. Also complaining of pain in left leg Patient denies chest pain, palpitation, shortness of breath, cough, abdominal pain, hematochezia, dysuria, frequency, focal weakness, dysarthria, fever chills , polydipsia polyuria, hot or cold intolerance, easy bruisability, or rash or bleeding from mucosal membrane, rhinorrhea, epistaxis, earache, tinnitus, blurry vision, eye discharge, anxiety, depression. Other review of systems negative PAST SURGICAL HISTORY: Left hip SOCIAL HISTORY: Denies alcohol, tobacco, drugs FAMILY HISTORY: Hypertension Medications and Allergies Allergies Allergy/AdvReac Type Severity Reaction Status Date / Time No Known Allergies Allergy Verified 02/23/16 06:00 Home Medications Medication Instructions Recorded Confirmed Last Taken Type Ascorbic Acid [Vitamin C] 1,000 mg PO DAILY 10/20/16 11/08/16 10/26/16 History Aspirin [Adult Low Dose Aspirin EC] 81 mg PO DAILY 10/20/16 11/08/16 1 Week Ago History Centrum Silver Tablet 1 tab PO DAILY 10/20/16 11/08/16 10/26/16 History Cholecalciferol Vit D3 [Vitamin D3] 1,000 unit PO QDAY 10/20/16 11/08/16 History Exam - Physical Exam Narrative exam: PGen. appearance: Patient lying in bed, no apparent distress HEENT: Normocephalic, atraumatic, pupils equally round and reactive to light, extraocular movement intact, and no sclericterus,. No JVD or thyromegaly or nodule,neck supple, no carotid bruit ,mucous membranes moist, no exudate or erythema Heart: S1, S2, regular rate and rhythm Lungs: Clear to auscultation bilaterally, breathing comfortable Abdomen: Positive bowel sounds, nontender, nondistended, no organomegaly Extremity: No edema, cyanosis, clubbing Skin: No rash, nodules, warm, dry Neuro: Oriented 3, cranial nerves II-12 intact, speech is fluent, motor and sensory intact - Constitutional Vitals: Temp Pulse Resp BP Pulse Ox 98.4 F 75 18 131/77 100 11/08/16 14:18 11/08/16 14:18 11/08/16 19:05 11/08/16 20:18 11/08/16 20:18 Results - Labs CBC & Chem 7: 11/08/16 16:05 11/08/16 16:05 - Imaging and Cardiology Venous US: report reviewed Assessment and Plan Left hip pain Admits medicine Doppler of the lower extremity negative for DVT Consult surgery, start pain management, DVT prophylaxis and physical therapy
[2016-11-09] MEDS: NOVOLOG SUB-Q SCH ×5 (03:00→23:22)
[2016-11-09 08:26] LABS: Basophils % (Auto) 0.4 % (0.0-1.8); Eosinophils % (Auto) 1.5 % (0.0-4.3); Hematocrit 29.2 % (30.3-42.9); Hemoglobin 9.6 gm/dl (10.1-14.3); Mean Corpuscular HGB Conc 33 % (30-34); Mean Corpuscular Hemoglobin 27 pg (28-32); Mean Corpuscular Volume 82 fl (79-97); Platelet Count 313 K/mm3 (140-440); Red Blood Count 3.55 M/mm3 (3.65-5.03); Red Cell Distribution Width 13.1 % (13.2-15.2); White Blood Count 5.2 K/mm3 (4.5-11.0)
[2016-11-09 08:40] LABS: Anion Gap 15 mmol/L; Blood Urea Nitrogen 14 mg/dL (7-17); Calcium 8.9 mg/dL (8.4-10.2); Carbon Dioxide 27 mmol/L (22-30); Chloride 101.8 mmol/L (98-107); Glucose 162 mg/dL (65-100); Potassium 4.6 mmol/L (3.6-5.0); Sodium 139 mmol/L (137-145)
[2016-11-09] MEDS: NORCO 10/325 PO PRN ×2 (09:16→14:42)
--- NOTE | 2016-11-09 10:53 | Progress Note ---
Assessment and Plan Assessment and plan: Pain left hip. He had left hip arthroplasty on 10/27/2016. Increase dose of House to 10/325 one pill every 6hrs when necessary Recent left hip arthroplasty on 10/27/2016. Dr. Dash consulted. DVT prophylaxis with Lovenox subcutaneous daily at bedtime Discussed case with Dr. Lucas, her primary care physician and he has agreed to take over care of the patient. Disposition. may need placement. History Interval history: patient had left hip arthroplasty 13 days ago on 10/27/2012 , pain left hip Hospitalist Physical - Physical exam Narrative exam: Gen appearance: Not in acute distress HEENT: Normocephalic,atraumatic Neck : supple, no JVD Lungs: Clear to auscultation bilaterally, no crackles or wheezes. Heart : S1 and S2 regular, tachy, no murmurs rubs or gallop, Abdomen: soft non-tender, non-distended, normal bowel sounds Extremities: tender left hip, vinnie over surgical wound.Dressing over left hip Neuro :awake alert oriented 3, no focal signs - Constitutional Vitals: Temp Pulse Resp BP Pulse Ox 97.7 F 74 16 134/73 100 11/09/16 07:30 11/09/16 07:30 11/09/16 07:30 11/09/16 07:30 11/09/16 08:44 Results - Labs CBC & Chem 7: 11/09/16 07:42 11/09/16 07:42 Labs: Laboratory Last Values WBC 5.2 K/mm3 (4.5-11.0) 11/09/16 07:42 RBC 3.55 M/mm3 (3.65-5.03) L 11/09/16 07:42 Hgb 9.6 gm/dl (10.1-14.3) L 11/09/16 07:42 Hct 29.2 % (30.3-42.9) L 11/09/16 07:42 MCV 82 fl (79-97) 11/09/16 07:42 MCH 27 pg (28-32) L 11/09/16 07:42 MCHC 33 % (30-34) 11/09/16 07:42 RDW 13.1 % (13.2-15.2) L 11/09/16 07:42 Plt Count 313 K/mm3 (140-440) 11/09/16 07:42 Lymph % (Auto) 24.2 % (13.4-35.0) 11/09/16 07:42 [place] % (Auto) 9.3 % (0.0-7.3) H 11/09/16 07:42 Eos % (Auto) 1.5 % (0.0-4.3) 11/09/16 07:42 Baso % (Auto) 0.4 % (0.0-1.8) 11/09/16 07:42 Lymph # 1.3 K/mm3 (1.2-5.4) 11/09/16 07:42 [place] # 0.5 K/mm3 (0.0-0.8) 11/09/16 07:42 Eos # 0.1 K/mm3 (0.0-0.4) 11/09/16 07:42 Baso # 0.0 K/mm3 (0.0-0.1) 11/09/16 07:42 Seg Neutrophils % 64.6 % (40.0-70.0) 11/09/16 07:42 Seg Neutrophils # 3.3 K/mm3 (1.8-7.7) 11/09/16 07:42 PT 13.4 Sec. (12.2-14.9) 11/08/16 16:05 INR 1.03 (0.87-1.13) 11/08/16 16:05 Sodium 139 mmol/L (137-145) 11/09/16 07:42 Potassium 4.6 mmol/L (3.6-5.0) 11/09/16 07:42 Chloride 101.8 mmol/L (98-107) 11/09/16 07:42 Carbon Dioxide 27 mmol/L (22-30) 11/09/16 07:42 Anion Gap 15 mmol/L 11/09/16 07:42 BUN 14 mg/dL (7-17) 11/09/16 07:42 Creatinine 0.5 mg/dL (0.7-1.2) L 11/09/16 07:42 Estimated GFR > 60 ml/min 11/09/16 07:42 BUN/Creatinine Ratio 28.00 % 11/09/16 07:42 Glucose 162 mg/dL (65-100) H 11/09/16 07:42 POC Glucose 169 (70-105) H 11/09/16 06:41 Calcium 8.9 mg/dL (8.4-10.2) 11/09/16 07:42 Total Bilirubin 0.3 mg/dL (0.1-1.2) 11/08/16 16:05 AST 19 units/L (5-40) 11/08/16 16:05 ALT 14 units/L (7-56) 11/08/16 16:05 Alkaline Phosphatase 65 units/L (35-129) 11/08/16 16:05 Total Protein 7.7 g/dL (6.3-8.2) 11/08/16 16:05 Albumin 3.9 g/dL (3.9-5) 11/08/16 16:05 Albumin/Globulin Ratio 1.0 % 11/08/16 16:05
--- NOTE | 2016-11-09 11:39 | Event Note ---
Date: 11/09/16 The patient is seen in consultation. This is a 66-year-old female who had undergone left total hip arthroplasty arthroplasty on 10/27/16, subsequently discharged to home with home health care. She was scheduled to follow with me on 10/22/16, however did not show up in the office. My office has contacted her home as she did not show up in the office and was adevice that "her daughter has sent her to the ER with a friend. " I was advised that Patient dropped off at the ER and that the friend had left. She was admitted to hospital, orthopedic consultation was requested.. Examination today shows she is comfortable, in bed. There is mild swelling to the right, expected for the postoperative period and the surgical incision is healing well with no evidence of infection. No calf pain, tenderness and has no neurological deficits. She also had a DVT scan which is reported negative. Diagnosis Status post total hip arthroplasty, recovering satisfactory Recommendations Stiffness removed Continue with rehabilitation program, weightbearing as tolerated, avoid flexion adduction internal rotation. Wound care Pain management, wean off narcotics. This may be discharged, we will see her back in our office on followup in 3-4 weeks or on a when necessary basis Will sign off.
[2016-11-09] MEDS: ASPIRIN PO SCH (14:41)
[2016-11-09] MEDS: LOVENOX SUB-Q SCH (23:22)
--- NOTE | 2016-11-10 11:40 | XRay Report ---
LEFT HIP, ONE VIEW: HISTORY: Left hip pain. FINDINGS: Single view of the left hip is presented. Lateral surgical skin vinnie suggest recent surgery. Left hip arthroplasty has been performed which is grossly intact. There is no obvious fracture or malalignment. IMPRESSION: Unremarkable appearance of the left hip prosthesis.
[2016-11-10] MEDS: ASPIRIN PO SCH (14:12)
[2016-11-10] MEDS: NOVOLOG SUB-Q SCH ×2 (14:12→17:00)
--- NOTE | 2016-11-10 16:17 | Consultation ---
History of Present Illness - HPI Consult date: 11/10/16 Consult reason: joint pain Medications and Allergies Allergies Allergy/AdvReac Type Severity Reaction Status Date / Time No Known Allergies Allergy Verified 02/23/16 06:00 Home Medications Medication Instructions Recorded Confirmed Last Taken Type Ascorbic Acid [Vitamin C] 1,000 mg PO DAILY 10/20/16 11/08/16 10/26/16 History Aspirin [Adult Low Dose Aspirin EC] 81 mg PO DAILY 10/20/16 11/08/16 1 Week Ago History Centrum Silver Tablet 1 tab PO DAILY 10/20/16 11/08/16 10/26/16 History Cholecalciferol Vit D3 [Vitamin D3] 1,000 unit PO QDAY 10/20/16 11/08/16 History Active Meds: Active Medications Acetaminophen (Tylenol) 650 mg PO Q4H PRN PRN Reason: Pain MILD(1-3)/Fever >100.5/CHAVES Acetaminophen/Hydrocodone Bitart ([place] 10/325) 1 each PO Q6H PRN PRN Reason: Pain, Moderate (4-6) Last Admin: 11/09/16 14:42 Dose: 1 each Aspirin (Aspirin) 325 mg PO QDAY [facility] Last Admin: 11/10/16 14:12 Dose: Not Given Bisacodyl (Dulcolax) 10 mg LA QDAY PRN PRN Reason: Constipation unrelieved by MOM Dextrose (D50w (25gm)) 50 ml IV PRN PRN PRN Reason: Hypoglycemia Enoxaparin Sodium (Lovenox) 40 mg SUB-Q QDAY@2200 [facility] Last Admin: 11/09/16 23:22 Dose: Not Given Insulin Aspart (Novolog) 0 units SUB-Q [facility] PRN Reason: Protocol Last Admin: 11/10/16 14:12 Dose: Not Given Magnesium Hydroxide (Milk Of Magnesia) 30 ml PO Q4H PRN PRN Reason: Constipation Ondansetron HCl (Zofran) 4 mg IV Q8H PRN PRN Reason: N/V unrelieved by Reglan Assessment and Plan alert orientated female in NAD chest clear, soft abdomen, wound Ok , Sutures Dc able to ambulate with support, without any problems, left lef NV ok, minimal edema on leg, sohan - RX hip. hip replacement, well located, Doing well after THR Needs NH placement because of social issues. Follow up in office prn.
[2016-11-11] MEDS: NOVOLOG SUB-Q SCH ×5 (00:10→22:00)
[2016-11-11] MEDS: LOVENOX SUB-Q SCH ×2 (00:10→21:50)
[2016-11-11] MEDS: ASPIRIN PO SCH (09:03)
--- NOTE | 2016-11-11 09:04 | Progress Note ---
Assessment and Plan - Patient Problems (1) Left hip pain Current Visit: Yes Status: Acute Plan to address problem: Continue under pain management Subjective Date of service: 11/10/16 Interval history: Seen for f/u of recent admission Pain L hip prosthesis under better control Spoke to briefcase sewer and rehab transfer in place, await location Objective - Exam Narrative Exam: L hip suture is clean and no signs of infection - Constitutional Vitals: Vital Signs - 12hr 11/10/16 11/11/16 20:08 00:00 Temperature 98.0 F Pulse Rate [ 79 Apical] Respiratory 22 Rate Blood Pressure 142/69 [Left Arm] O2 Sat by Pulse 98 99 Oximetry General appearance: Present: no acute distress, well-nourished - EENT Eyes: PERRL, EOM intact ENT: hearing intact, clear oral mucosa Ears: bilateral: normal - Neck Neck: supple, normal ROM - Respiratory Respiratory effort: normal Respiratory: bilateral: CTA - Breasts Breasts: deferred, normal - Cardiovascular Rhythm: regular Heart Sounds: Present: S1 & S2. Absent: gallop, rub Extremities: pulses intact, No edema, normal color, Full ROM - Gastrointestinal General gastrointestinal: Present: soft, non-tender, non-distended, normal bowel sounds Rectal Exam: deferred - Genitourinary Female genitourinary: deferred, normal - Integumentary Integumentary: clear, warm, dry - Musculoskeletal Musculoskeletal: 1, strength equal bilaterally - Neurologic Neurologic: moves all extremities - Psychiatric Psychiatric: memory intact, appropriate mood/affect, intact judgment & insight - Labs CBC & Chem 7: 11/09/16 07:42 11/09/16 07:42 Labs: Abnormal lab results 11/10/16 11/10/16 11/10/16 Range/Units 05:26 12:01 16:05 POC Glucose 143 H 201 H 156 H (70-105) 11/10/16 11/11/16 Range/Units 21:59 05:49 POC Glucose 133 H 151 H (70-105)
[2016-11-11] MEDS: NORCO 10/325 PO PRN (21:50)
[2016-11-12] MEDS: NOVOLOG SUB-Q SCH ×2 (07:44→13:08)
--- NOTE | 2016-11-12 09:54 | Discharge Summary ---
Providers - Providers Date of Admission: 11/09/16 10:53 Attending physician: VENKATESH TIM Primary care physician: [employer] Hospitalization Condition: Stable Hospital course: Admitted for failure to manage medical care following L hip THR Came in c/o severe pain and likely fevre(not documented here) Treated for pain management and suture care by orthopedics, sent to rehab when available for admission Disposition: DC/TX INPT REHAB FACILITY - Discharge Diagnoses (1) Left hip pain Status: Acute Core Measure Documentation - Palliative Care Palliative Care/ Comfort Measures: Not Applicable - Core Measures Any of the following diagnoses?: none Exam - Physical Exam Narrative exam: L hip suture is clean and no signs of infection - Constitutional Vitals: Temp Pulse Resp BP Pulse Ox 98.3 F 72 20 117/66 97 11/12/16 08:15 11/12/16 08:15 11/12/16 08:15 11/12/16 08:15 11/12/16 08:15 General appearance: Present: no acute distress, well-nourished - EENT Eyes: Present: PERRL ENT: hearing intact, clear oral mucosa - Neck Neck: Present: supple, normal ROM - Respiratory Respiratory effort: normal Respiratory: bilateral: CTA - Cardiovascular Heart Sounds: Present: S1 & S2. Absent: rub, click - Extremities Extremities: pulses symmetrical, No edema, abnormal (L hip suture clean) Peripheral Pulses: within normal limits - Abdominal General gastrointestinal: Present: soft, non-tender, non-distended, normal bowel sounds Female genitourinary: Present: deferred, normal - Rectal Rectal Exam: deferred - Integumentary Integumentary: Present: clear, warm, dry - Musculoskeletal Musculoskeletal: gait normal, strength equal bilaterally - Psychiatric Psychiatric: appropriate mood/affect, intact judgment & insight - Neurologic Neurologic: CNII-XII intact, moves all extremities Plan Follow up with: PRIMARY CARE, [Primary Care Provider] - 3-5 Days
[2016-11-12] MEDS: ASPIRIN PO SCH (10:24)
[2016-11-12 15:04] VITALS: BP 124/74
== END 2016-11-12 16:30 | DRG 561 ==
LOC: ED 13:29 → 3A 18:59 → OBSVTOIN 11-09 10:53
PROVIDERS: ADMIT Internal Medicine; ATTEND Internal Medicine
DX: T84.84XA Pain due to internal orthopedic prosthetic devices, implants and grafts, initial encounter (principal); I10 Essential (primary) hypertension; E11.9 Type 2 diabetes mellitus without complications; K21.9 Gastro-esophageal reflux disease without esophagitis; M19.90 Unspecified osteoarthritis, unspecified site; J45.909 Unspecified asthma, uncomplicated; G89.29 Other chronic pain; Y83.8 Other surgical procedures as the cause of abnormal reaction of the patient, or of later complication, without mention of misadventure at the time of the procedure; Y92.89 Other specified places as the place of occurrence of the external cause; Z82.49 Family history of ischemic heart disease and other diseases of the circulatory system; Z79.82 Long term (current) use of aspirin; Z98.890 Other specified postprocedural states
CPT/HCPCS: 36415; 80048; 80053; 82962; 85025; 85610; 96372; G0378; G8978-GP; G8979-GP; J1170; J1650; J1815

== ENCOUNTER 2017-01-12 13:33 | Outpatient (CLI) | payer MEDICARE, MEDICAID ==
--- NOTE | 2017-01-13 08:27 | Vascular Lab Report ---
Left Lower Extremity Venous Duplex Study: Reason for Exam: Left leg swelling. Comments on the Right: A limited duplex study was done of the proximal veins of the right lower extremity. All veins visualized are freely compressible without evidence of internal echogenicity. Flow is spontaneous and phasic throughout. No evidence of acute or chronic thrombus is seen in any of the vessels visualized. Comments on the Left: All veins visualized are freely compressible without evidence of internal echogenicity. Flow is spontaneous and phasic throughout. No evidence of acute or chronic thrombus is seen in any of the vessels visualized. Impression: No evidence of acute or chronic deep venous thrombosis in the left lower extremity.
== END 2017-01-12 13:34 | disposition home or self-care (01) ==
LOC: VAS 13:33
DX: M79.89 Other specified soft tissue disorders (principal)

== ENCOUNTER 2017-04-07 09:42 | Outpatient (CLI) | payer MEDICARE ==
--- NOTE | 2017-04-07 15:01 | Mammography Report ---
BILATERAL DIGITAL SCREENING MAMMOGRAM with CAD: 04/07/17 09:42:00 CLINICAL: Routine screening. COMPARISON:None. FINDINGS: The breasts are heterogeneously dense, which may obscure small masses. A right lower inner partially circumscribed asymmetry and a right outer asymmetry with architectural distortion require additional imaging. A biopsy clip is identified adjacent to the architectural distortion in the outer right breast. Left asymmetries on both views require additional imaging. IMPRESSION: Bilateral asymmetries requiring further workup. BI-RADS CATEGORY: 0 -- Additional Imaging Evaluation Required RECOMMENDATION: Recall for bilateral spot compression views and bilateral breast ultrasound if needed. ACR BI-RADS MAMMOGRAPHIC CODES: 0 = Needs additional imaging evaluation; 1 = Negative; 2 = Benign; 3 = Probably benign; 4 = Suspicious; 5 = Malignant; 6 = Known biopsy-proven malignancy COMMENT: 1. Dense breast tissue, i.e., adenosis, fibrocystic changes, etc., may obscure an underlying neoplasm. 2. Approximately 10% of cancers are not detected with mammography. 3. A negative mammography report should not delay biopsy if a clinically suspicious mass is present. COMMENT: Patient follow-up letters are generated via our [employer] application.
== END 2017-04-07 09:43 | disposition home or self-care (01) ==
LOC: SPVWC 09:42
PROVIDERS: ATTEND Internal Medicine
DX: Z12.31 Encounter for screening mammogram for malignant neoplasm of breast (principal); J45.909 Unspecified asthma, uncomplicated; D64.9 Anemia, unspecified
CPT/HCPCS: 77067; G0202

== ENCOUNTER 2017-05-04 15:24 | Outpatient (CLI) | payer MEDICARE ==
--- NOTE | 2017-05-04 16:27 | Ultrasound Report ---
Bilateral diagnostic mammogram and bilateral targeted breast ultrasound. History: Recall for bilateral asymmetries. Findings: Spot compression images in the areas of interest in the right breast demonstrate a persistent subcentimeter nodular asymmetry in the subareolar right breast seen only on the CC projection just medial to the nipple line. The superior asymmetry seen in the MLO projection demonstrates effacement on spot compression image. Sonographic evaluation of the subareolar right breast demonstrates no significant findings. Spot compression images of the left breast demonstrate persistence of a 6 mm nodular asymmetry seen only on the CC image. The superior asymmetry demonstrate effacement on spot compression image. Sonographic evaluation of the left breast demonstrates no cystic or solid masses. Impression: A small nodular asymmetry persists in each breast on one view only. There no suspicious renographic features. There no sonographic correlates. BI-RADS code: 3. Recommendation: 6 month followup bilateral mammogram and bilateral ultrasound.
== END 2017-05-04 15:25 | disposition home or self-care (01) ==
LOC: SPVWC 15:24
PROVIDERS: ATTEND Internal Medicine
DX: N64.89 Other specified disorders of breast (principal); J45.909 Unspecified asthma, uncomplicated; D64.9 Anemia, unspecified; E13.9 Other specified diabetes mellitus without complications
CPT/HCPCS: 76642; G0204; 77066

== ENCOUNTER 2018-11-01 10:44 | Outpatient (CLI) | payer MEDICARE ==
--- NOTE | 2018-11-01 12:26 | Vascular Lab Report ---
FINAL REPORT EXAM: VL VENOUS DUPLEX LE LT HISTORY: CALF PAIN LOWER LEG TECHNIQUE: Grayscale and color and spectral Doppler ultrasound imaging of the left lower extremity w as performed for the purposes of assessing for deep venous thrombosis. PRIORS: None. FINDINGS: No evidence of deep venous thrombosis is seen within the common femoral through the posterior tibial and peroneal veins. Normal compression and color flow is seen throughout the venous system of the lef t lower extremity. Normal augmentation was seen. IMPRESSION: Negative for left lower extremity deep venous thrombosis.
== END 2018-11-01 10:45 | disposition home or self-care (01) ==
LOC: VAS 10:44
PROVIDERS: ATTEND Podiatrist Foot & Ankle Surgery
DX: M79.662 Pain in left lower leg (principal); M79.89 Other specified soft tissue disorders; I10 Essential (primary) hypertension; J45.909 Unspecified asthma, uncomplicated; K21.9 Gastro-esophageal reflux disease without esophagitis; M19.90 Unspecified osteoarthritis, unspecified site